=== PATIENT | female | born 1985 | race Caucasian/White ===

== ENCOUNTER 2024-10-25 15:09 | Emergency (ER) | payer SELFPAY ==
[2024-10-25 15:11] VITALS: BP 185/97
[2024-10-25 15:32] VITALS: BP 147/70
--- NOTE | 2024-10-25 15:46 | ED.MUSCINJ ---
HPI-Injury
General
Chief Complaint: Musculo-Skeletal Complaint
Source: patient
Exam Limitations: none
Time Seen by Provider: 10/25/24 15:27
History of Present Illness-Injury
Initial Injury comments:
38-year-old female presents complaining of right ankle pain starting last evening. She was playing with the dog and twisted her ankle. Pain is along the lateral aspect of the ankle. She is able to bear weight but with discomfort. She has a
history of fracture of her ankle in the past. No other complaints at this time
Past History
Past History
ED Past Medical History: None
ED Past Surgical History: None
Social History
Alcohol: None
Drug: None
Personal:
Living: with family
Phy Exam
Physical Exam
Physical Exam:
General: Well-appearing female no acute respiratory distress
HEENT: Normocephalic atraumatic
Musculoskeletal exam: Right ankle swollen and tender inferior to the distal fibula. The foot itself is nontender the medial malleolus is nontender. The diez is nontender. She is able to plantarflex and dorsiflex
Extremities: No cyanosis
Injury Course
Orders/Labs/Results
Orders:
Orders
10/25/24 15:10
CR Ankle - Right Min 3 Views * Urgent
Comment:
Reason For Exam: injury, pain
MDM/Problems Addressed
Differential Diagnosis Includes:
Right ankle pain after tripping injury. Consider sprain versus fracture versus dislocation
I personally visualized x-rays of the right ankle which are negative for acute finding. There is evidence of an old healed fracture. I suspect underlying sprain. Patient was placed in an orthopedic boot and is stable for discharge
*Critical Care Note
Total Time (30-74mins, 75-104mins- exclusive of procedures): Not Applicable
ED Attending Note
-
Portions of this chart may have been created with voice recognition software.� Occasional wrong word or��sound alike� substitutions may have occurred due to the inherent limitations of voice recognition software.
Discharge Plan
Departure
Patient Disposition: Home (Routine Discharge)
Date of Disposition: 10/25/24
Time of Disposition: 15:51
Patient with high blood pressure during this ER visit?: No
Discharge Problem:
Ankle sprain
Instructions: Muscle and Bone Pain (DC)
Prescriptions:
No Action
atorvastatin 20 mg Tablet
20 mg PO HS
insulin glargine [Lantus U-100 Insulin] 100 unit/mL Solution
40 unit SC DAILY
Patient Comments:
pt took 32 units
zolpidem [Ambien] 5 mg Tablet
5 mg PO HS
Rx Instructions:
may repeat once if no response in 30-60 minutes
insulin aspart U-100 [Novolog FlexPen U-100 Insulin] 100 unit/mL (3 mL) Insulin Pen
24 unit SC AC
meloxicam 15 mg Tablet
15 mg PO DAILY
acetaminophen 500 mg Tablet
1,000 mg PO QID PRN (Reason: PAIN)
montelukast 10 mg Tablet
10 mg PO QPM
Stand Alone Forms: Return to Work
Activity Restrictions/Additional Instructions:
Rest. Use ibuprofen for pain. Elevate for swelling. Use boot for support when ambulating. Return if worse otherwise follow-up with your doctor
Interventions
Interventions:
*Risk Screen - Suicide Last Done: 10/25/24 15:13
*General Assessment Last Done: 10/25/24 15:13
*Neglect/Abuse Screening Last Done: 10/25/24 15:13
*ED COVID-19 Vaccine History Last Done: 10/25/24 15:13
ED-Musculoskeletal Assessment Last Done: 10/25/24 15:31
Discharge Date and Time
Print Language: IRISH
== END 2024-10-25 16:03 | disposition home or self-care (01) ==
LOC: EMR 15:09
PROVIDERS: EMERGENCY PHYSICIAN Emergency Medicine; FAMILY PHYSICIAN Family Medicine
DX: S93.401A Sprain of unspecified ligament of right ankle, initial encounter (principal); X50.1XXA Overexertion from prolonged static or awkward postures, initial encounter
CPT/HCPCS: 99283; 73610